=== PATIENT | female | born 1980 | race Caucasian/White ===

== ENCOUNTER 2016-12-27 07:01 | Day surgery (SDC) | payer OTHER ==
[2016-12-27] MEDS ORDERED: fentaNYL 100 MCG/2 ML SDV ONE (07:30)
[2016-12-27] MEDS ORDERED: Propofol 200 MG/20 ML SDV ONE (07:30)
[2016-12-27] MEDS ORDERED: Midazolam 1 MG/ML 2 ML SDV ONE (07:30)
[2016-12-27] MEDS ORDERED: Sodium Chloride 0.9% 1,000 ML IV SCH (08:00)
[2016-12-27 10:42] VITALS: BP 122/70
--- NOTE | 2016-12-27 16:06 | OR ---
DATE OF PROCEDURE: 12/27/2016 PROCEDURE: EGD. FINDINGS: 1. Two areas of what appeared to be reflux disease in the proximal esophagus versus esophageal malignancy (biopsied x3 using cold biopsy forceps). 2. Inflammation of the duodenum consistent with duodenitis (biopsied using cold biopsy forceps for evaluation of H. pylori). COMPLICATIONS: None. MOLDING MACHINE SETTER: None. ANESTHESIA: MAC/local. RISKS: Risks, benefits, alternatives, limitations including, but not limited to infection, bleeding, and perforation along with aspiration risks were explained to the patient who wished to proceed. PROCEDURE IN DETAIL: The patient was placed in left lateral decubitus position. The EGD scope was introduced and advanced atraumatically to the second part of the duodenum. Slightly distal to the duodenal bulb, there was an area of inflammation which could be consistent with a healing ulcer or just standard inflammation. This was biopsied using cold biopsy forceps. There was no evidence of duodenal ulceration actively except for the aforementioned lesion. No abnormalities in the bulb. The gastric antrum, body, and cardia, etc. showed no evidence of gastritis, ulceration, or abnormality. The patient did not have a hiatal hernia. The GE junction itself was normal. There was no evidence of inflammation. In the proximal esophagus, the patient had 2 areas which are either consistent with a malignancy or a reflux disease. These were biopsied gently using cold biopsy forceps x3. No other abnormalities were noted. The patient tolerated the procedure well. Doug Sen MD /[id number]
== END 2016-12-27 10:54 | disposition home or self-care (01) ==
LOC: JP.SDS 07:01
PROVIDERS: ATTEND Surgery
DX: K22.8 Other specified diseases of esophagus (principal); K31.89 Other diseases of stomach and duodenum; Z88.2 Allergy status to sulfonamides; Z88.8 Allergy status to other drugs, medicaments and biological substances
CPT/HCPCS: 43239; J2250; J2704; J3010; J7040; 88305